=== PATIENT | female | born 1975 | race Caucasian/White ===

== ENCOUNTER 2023-03-28 17:20 | Emergency (ER) | payer MEDICAID, SELFPAY ==
[2023-03-28 17:23] VITALS: BP 140/98; PULSE 94; RESP 18; TEMP 37.4; O2SAT 99; BMI 28.5
--- NOTE | 2023-03-28 17:37 | ED.GENADUL1 ---
Documented by User: BATSHEVA Kumar 03/28/23 19:21 HPI - General Adult General Chief complaint: Skin/Abscess/Foreign Body Stated complaint: infection thumb, rash Time Seen by Provider: 03/28/23 17:23 History of Present Illness HPI narrative: patient is a 47-year-old female who presents to the emergency department for the evaluation of left thumb swelling over the last two days. She states the initial swelling was on the dorsum and radial aspect of the fingertip, she has now had diffuse swelling, redness and pain of the fingertip. There has been no drainage. She denies any injuries, she has no history of diabetes or similar symptoms previously. She further complains of rash to the right forearm that was noted just prior to arrival by her significant other without itching or pain. She further complains of pain and swelling to the 1st MTP joint. She denies any injury to the foot. She is not concerned for . she reports subjective fever, no vomiting. Related Data Home Medications Medication Instructions Recorded Confirmed aripiprazole 2 mg tablet 2 mg PO 03/28/23 metoprolol succinate 25 mg 25 mg PO 03/28/23 tablet,extended release 24 hr Previous Rx's Medication Instructions Recorded cephalexin 500 mg capsule 500 mg PO Q8H 10 days #30 caps 03/28/23 mupirocin 2 % topical ointment 1 applic topical BID #15 grams 03/28/23 naproxen sodium 550 mg tablet 550 mg PO BID PRN pain #10 tabs 03/28/23 ondansetron 4 mg disintegrating 4 mg PO Q6H PRN nausea and 03/28/23 tablet vomiting #12 tabs oxycodone-acetaminophen 5 mg-325 1 tab PO Q6H PRN pain #15 tabs 03/28/23 mg tablet (Percocet) sulfamethoxazole 800 1 tab PO BID 10 days #20 tabs 03/28/23 mg-trimethoprim 160 mg tablet (Bactrim DS) Allergies Allergy/AdvReac Type Severity Reaction Status Date / Time No Known Drug Allergies Allergy Verified 03/28/23 17:23 Review of Systems ROS Constitutional Reports: fever; Denies: chills Respiratory Denies: shortness of breath Gastrointestinal Denies: nausea or vomiting Musculoskeletal Reports: extremity pain and joint pain Integumentary/Breast Denies: rash Allergic/Immunologic Denies: hives PFSH PFSH Social History Smoking status: Current some day smoker Exam Narrative Exam Narrative: Gen.: Awake, alert, in no distress Head: Normocephalic, atraumatic ENT: Moist mucous membranes Respiratory: No respiratory distress Extremities: Moves extremities equally, left thumb with diffuse erythema, deep this erythema is concentrated on the dorsal, radial aspect of the right thumb at the distal phalanx. Diffusely tender to palpation with limited flexion and extension at the IP joint due to pain, no palpable abscess in the soft tissue of the fingertip. No visible paronychia, no active drainage. No red streaking; 1st MTP joint of the left foot with no erythema or rash noted. Diffusely swollen, 2+ left DP pulse Psych: Normal mood and affect Neuro: No focal neuro deficit Skin: Warm, dry, intact; folliculitis noted to the dorsum minimally of the midforearm, no open wounds or drainage. No abscess or red streaking Constitutional Vital Signs, click to edit/add: Last Vital Signs Temp 99.3 F 03/28/23 17:23 Pulse 94 H 03/28/23 17:23 Resp 18 03/28/23 17:23 BP 140/98 H 03/28/23 17:23 Pulse Ox 99 03/28/23 17:23 O2 Del Method Room Air 03/28/23 17:23 Course Vital Signs Vital signs: Vital Signs Temperature 99.3 F 03/28/23 17:23 Pulse Rate 94 H 03/28/23 17:23 Respiratory Rate 18 03/28/23 17:23 Blood Pressure 140/98 H 03/28/23 17:23 Pulse Oximetry 99 03/28/23 17:23 Oxygen Delivery Method Room Air 03/28/23 17:23 Temperature 99.3 F 03/28/23 17:23 Pulse Rate 94 H 03/28/23 17:23 Respiratory Rate 18 03/28/23 17:23 Blood Pressure 140/98 H 03/28/23 17:23 Pulse Oximetry 99 03/28/23 17:23 Oxygen Delivery Method Room Air 03/28/23 17:23 Medical Decision Making MDM Narrative Medical decision making narrative: exam is consistent with soft tissue cellulitis of the left thumb, there is no palpable abscess or fluctuance, no red streaking to the proximal thumb. No open wounds or drainage. X-rays of the left foot and left thumb with no evidence of osteomyelitis although there are degenerative changes at the 1st MTP joint. Lab studies show normal white blood cell count, no bandemia, normal uric acid with mild elevation of CRP. Patient treated with oral antibiotics for cellulitis, topical antibiotics for folliculitis of the right arm, analgesics and NSAIDs for pain. She is encouraged to do warm soaks for the thumb, follow-up with orthopedics to reevaluate the area as well as for her left foot, return to the Emergency Room if symptoms change or worsen. She is neurovascularly intact at discharge. Lab Data Labs: Lab Results 03/28/23 Range/Units 17:45 WBC 10.3 (4.0-11.0) 10^3/uL RBC 4.54 (4.20-5.40) 10^6/uL Hgb 13.6 (12.0-16.0) g/dL Hct 41.0 (36.0-48.0) % MCV 90.3 (81.0-99.0) fL MCH 30.0 (26.7-34.0) pg MCHC 33.2 (29.9-35.2) g/dL RDW 12.9 (11.0-15.0) % Plt Count 249 (150-450) 10^3/uL MPV 10.3 (9.5-13.5) fL Neut % (Auto) 82.0 H (43.0-75.0) % Lymph % (Auto) 12.4 L (20.5-60.0) % Warren % (Auto) 4.2 (1.7-12.0) % Eos % (Auto) 0.7 L (0.9-7.0) % Baso % (Auto) 0.4 (0.2-2.0) % Neut # (Auto) 8.5 H (1.4-6.5) 10^3/uL Lymph # (Auto) 1.3 (1.2-3.8) 10^3/uL Warren # (Auto) 0.4 (0.3-0.8) 10^3/uL Eos # (Auto) 0.1 (0.0-0.7) 10^3/uL Baso # (Auto) 0.0 (0.0-0.1) 10^3/uL Abs Immat Gran (auto) 0.03 (0.00-0.03) 10^3/uL Imm/Tot Granulo (auto) 0.3 (0.0-0.5) % ESR 19 (<=20) mm/hr Sodium 137 (136-145) mmol/L Potassium 3.5 (3.5-5.1) mmol/L Chloride 103 (98-107) mmol/L Carbon Dioxide 31.7 (21.0-32.0) mmol/L Anion Gap 5.8 BUN 9.0 (7.0-18.0) mg/dL Creatinine 0.63 (0.55-1.02) mg/dL Est GFR ( Amer) >60 (>=60) Est GFR (Non-Af Amer) >60 (>=60) BUN/Creatinine Ratio 14.3 Glucose 96 (74-106) mg/dL Uric Acid 4.3 (2.6-6.0) mg/dL Calcium 9.2 (8.5-10.1) mg/dL Total Bilirubin 0.2 (0.2-1.0) mg/dL AST 15 (15-37) U/L ALT 27 (14-59) U/L Alkaline Phosphatase 97 (46-116) U/L C-Reactive Protein 5.4 H (<=1.0) mg/dL Total Protein 7.1 (6.4-8.2) g/dL Albumin 3.8 (3.4-5.0) g/dL Globulin 3.3 g/dL Albumin/Globulin Ratio 1.2 Imaging Data XR foot: Attestation: I have reviewed the pertinent imaging results. Discharge Plan Discharge Chief Complaint: Skin/Abscess/Foreign Body Clinical Impression: Acute pain of left foot, Folliculitis, Cellulitis of left thumb Patient Disposition: Home, Self-Care Time of Disposition Decision: 19:09 Condition: Good Prescriptions / Home Meds: New sulfamethoxazole-trimethoprim [Bactrim DS] 800-160 mg tablet 1 tab PO BID 10 Days Qty: 20 0RF oxycodone-acetaminophen [Percocet] 5-325 mg tablet 1 tab PO Q6H PRN (Reason: pain) Qty: 15 0RF Rx Instructions: DX: M79.645 cephalexin 500 mg capsule 500 mg PO Q8H 10 Days Qty: 30 0RF naproxen sodium 550 mg tablet 550 mg PO BID PRN (Reason: pain) Qty: 10 0RF mupirocin 2 % ointment 1 applic topical BID Qty: 15 0RF ondansetron 4 mg tablet,disintegrating 4 mg PO Q6H PRN (Reason: nausea and vomiting) Qty: 12 0RF No Action aripiprazole 2 mg tablet 2 mg PO metoprolol succinate 25 mg tablet extended release 24 hr 25 mg PO Instructions: Cellulitis (ED), Folliculitis (ED), Arthralgia (ED) Additional Instructions: Call [facility] office tomorrow to follow up with Jd or Dr. Mccray [phone] in the next 2-3 days Stand Alone Forms: Portal Instructions Referrals: Physician,Non-Staff, MD [Primary Care Provider] - 1 week Discharge Date/Time: 03/28/23 19:33 Documented by User: Jorgito Walton MD 03/28/23 19:46 HPI - General Adult General Chief complaint: Skin/Abscess/Foreign Body Stated complaint: infection thumb, rash Time Seen by Provider: 03/28/23 17:23 Related Data Home Medications Medication Instructions Recorded Confirmed aripiprazole 2 mg tablet 2 mg PO 03/28/23 metoprolol succinate 25 mg 25 mg PO 03/28/23 tablet,extended release 24 hr Previous Rx's Medication Instructions Recorded cephalexin 500 mg capsule 500 mg PO Q8H 10 days #30 caps 03/28/23 mupirocin 2 % topical ointment 1 applic topical BID #15 grams 03/28/23 naproxen sodium 550 mg tablet 550 mg PO BID PRN pain #10 tabs 03/28/23 ondansetron 4 mg disintegrating 4 mg PO Q6H PRN nausea and 03/28/23 tablet vomiting #12 tabs oxycodone-acetaminophen 5 mg-325 1 tab PO Q6H PRN pain #15 tabs 03/28/23 mg tablet (Percocet) sulfamethoxazole 800 1 tab PO BID 10 days #20 tabs 03/28/23 mg-trimethoprim 160 mg tablet (Bactrim DS) Allergies Allergy/AdvReac Type Severity Reaction Status Date / Time No Known Drug Allergies Allergy Verified 03/28/23 17:23 [facility] Social History Smoking status: Current some day smoker Exam Constitutional Vital Signs, click to edit/add: Last Vital Signs Temp 99.3 F 03/28/23 17:23 Pulse 94 H 03/28/23 17:23 Resp 18 03/28/23 17:23 BP 140/98 H 03/28/23 17:23 Pulse Ox 99 03/28/23 17:23 O2 Del Method Room Air 03/28/23 17:23 Course Vital Signs Vital signs: Vital Signs Temperature 99.3 F 03/28/23 17:23 Pulse Rate 94 H 03/28/23 17:23 Respiratory Rate 18 03/28/23 17:23 Blood Pressure 140/98 H 03/28/23 17:23 Pulse Oximetry 99 03/28/23 17:23 Oxygen Delivery Method Room Air 03/28/23 17:23 Temperature 99.3 F 03/28/23 17:23 Pulse Rate 94 H 03/28/23 17:23 Respiratory Rate 18 03/28/23 17:23 Blood Pressure 140/98 H 03/28/23 17:23 Pulse Oximetry 99 03/28/23 17:23 Oxygen Delivery Method Room Air 03/28/23 17:23 Medical Decision Making [facility] Narrative Medical decision making narrative: exam is consistent with soft tissue cellulitis of the left thumb, there is no palpable abscess or fluctuance, no red streaking to the proximal thumb. No open wounds or drainage. X-rays of the left foot and left thumb with no evidence of osteomyelitis although there are degenerative changes at the 1st MTP joint. Lab studies show normal white blood cell count, no bandemia, normal uric acid with mild elevation of CRP. Patient treated with oral antibiotics for cellulitis, topical antibiotics for folliculitis of the right arm, analgesics and NSAIDs for pain. She is encouraged to do warm soaks for the thumb, follow-up with orthopedics to reevaluate the area as well as for her left foot, return to the Emergency Room if symptoms change or worsen. She is neurovascularly intact at discharge. I, Dr Walton, have reviewed the above progress note and course of action in the ER; agree with the above. I have personally seen and evaluated this patient, gone over history and physical, and discussed disposition and treatment plan with the patient. Lab Data Labs: Lab Results 03/28/23 Range/Units 17:45 WBC 10.3 (4.0-11.0) 10^3/uL RBC 4.54 (4.20-5.40) 10^6/uL Hgb 13.6 (12.0-16.0) g/dL Hct 41.0 (36.0-48.0) % MCV 90.3 (81.0-99.0) fL MCH 30.0 (26.7-34.0) pg MCHC 33.2 (29.9-35.2) g/dL RDW 12.9 (11.0-15.0) % Plt Count 249 (150-450) 10^3/uL MPV 10.3 (9.5-13.5) fL Neut % (Auto) 82.0 H (43.0-75.0) % Lymph % (Auto) 12.4 L (20.5-60.0) % Warren % (Auto) 4.2 (1.7-12.0) % Eos % (Auto) 0.7 L (0.9-7.0) % Baso % (Auto) 0.4 (0.2-2.0) % Neut # (Auto) 8.5 H (1.4-6.5) 10^3/uL Lymph # (Auto) 1.3 (1.2-3.8) 10^3/uL Warren # (Auto) 0.4 (0.3-0.8) 10^3/uL Eos # (Auto) 0.1 (0.0-0.7) 10^3/uL Baso # (Auto) 0.0 (0.0-0.1) 10^3/uL Abs Immat Gran (auto) 0.03 (0.00-0.03) 10^3/uL Imm/Tot Granulo (auto) 0.3 (0.0-0.5) % ESR 19 (<=20) mm/hr Sodium 137 (136-145) mmol/L Potassium 3.5 (3.5-5.1) mmol/L Chloride 103 (98-107) mmol/L Carbon Dioxide 31.7 (21.0-32.0) mmol/L Anion Gap 5.8 BUN 9.0 (7.0-18.0) mg/dL Creatinine 0.63 (0.55-1.02) mg/dL Est GFR ( Amer) >60 (>=60) Est GFR (Non-Af Amer) >60 (>=60) BUN/Creatinine Ratio 14.3 Glucose 96 (74-106) mg/dL Uric Acid 4.3 (2.6-6.0) mg/dL Calcium 9.2 (8.5-10.1) mg/dL Total Bilirubin 0.2 (0.2-1.0) mg/dL AST 15 (15-37) U/L ALT 27 (14-59) U/L Alkaline Phosphatase 97 (46-116) U/L C-Reactive Protein 5.4 H (<=1.0) mg/dL Total Protein 7.1 (6.4-8.2) g/dL Albumin 3.8 (3.4-5.0) g/dL Globulin 3.3 g/dL Albumin/Globulin Ratio 1.2 Discharge Plan Discharge Chief Complaint: Skin/Abscess/Foreign Body Clinical Impression: Acute pain of left foot, Folliculitis, Cellulitis of left thumb Patient Disposition: Home, Self-Care Time of Disposition Decision: 19:09 Condition: Good Prescriptions / Home Meds: New sulfamethoxazole-trimethoprim [Bactrim DS] 800-160 mg tablet 1 tab PO BID 10 Days Qty: 20 0RF oxycodone-acetaminophen [Percocet] 5-325 mg tablet 1 tab PO Q6H PRN (Reason: pain) Qty: 15 0RF Rx Instructions: DX: M79.645 cephalexin 500 mg capsule 500 mg PO Q8H 10 Days Qty: 30 0RF naproxen sodium 550 mg tablet 550 mg PO BID PRN (Reason: pain) Qty: 10 0RF mupirocin 2 % ointment 1 applic topical BID Qty: 15 0RF ondansetron 4 mg tablet,disintegrating 4 mg PO Q6H PRN (Reason: nausea and vomiting) Qty: 12 0RF No Action aripiprazole 2 mg tablet 2 mg PO metoprolol succinate 25 mg tablet extended release 24 hr 25 mg PO Instructions: Cellulitis (ED), Folliculitis (ED), Arthralgia (ED) Additional Instructions: Call [facility] office tomorrow to follow up with Jd or Dr. Mccray [phone] in the next 2-3 days Stand Alone Forms: Portal Instructions Referrals: Physician,Non-Staff, MD [Primary Care Provider] - 1 week Discharge Date/Time: 03/28/23 19:33
--- NOTE | 2023-03-28 17:40 | XR_ITS ---
The [address] [address] Patient Name: JENNY MENCHACA MRN: [id number] date: 1975 Sex: F Assigned Patient Location: ER Current Patient Location: ER Accession/Order Number: [id number] Exam Date: 03/28/2023 18:00 Report Date: 03/28/2023 19:05 At the request of: HAROON DRIVER Procedure: XR foot LT min 3V IMAGES REVIEWED: XR foot LT min 3V COMPARISON: None available. CLINICAL INDICATION: 1st MTP joint swelling/pain FINDINGS/IMPRESSION: 1. 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 2. Mild dorsal forefoot soft tissue swelling. 3. No fracture or dislocation. Electronically authenticated by: VALERIA GONZALEZ Date: 03/28/2023 19:05
[2023-03-28 17:49] LABS: Basophils Percent Auto 0.4 % (0.2-2.0); Eosinophils Absolute Auto 0.1 10^3/uL (0.0-0.7); Eosinophils Percent Auto 0.7 % (0.9-7.0); Hemoglobin 13.6 g/dL (12.0-16.0); Immature Granulocytes Abs Auto 0.03 10^3/uL (0.00-0.03); Immature Granulocytes Pct Auto 0.3 % (0.0-0.5); Lymphocytes Absolute Auto 1.3 10^3/uL (1.2-3.8); Lymphocytes Percent Auto 12.4 % (20.5-60.0); Mean Corpuscular HGB Conc 33.2 g/dL (29.9-35.2); Mean Corpuscular Volume 90.3 fL (81.0-99.0); Mean Platelet Volume 10.3 fL (9.5-13.5); Monocytes Absolute Auto 0.4 10^3/uL (0.3-0.8); Monocytes Percent Auto 4.2 % (1.7-12.0); Neutrophils Absolute Auto 8.5 10^3/uL (1.4-6.5); Platelet Count 249 10^3/uL (150-450); Red Blood Count 4.54 10^6/uL (4.20-5.40); Red Cell Distribution Width 12.9 % (11.0-15.0); White Blood Count 10.3 10^3/uL (4.0-11.0)
[2023-03-28 17:55] LABS: Erythrocyte Sedimentation Rate 19 mm/hr (<=20)
--- NOTE | 2023-03-28 18:00 | XR_ITS ---
The [address] [address] Patient Name: JENNY MENCHACA MRN: [id number] date: 1975 Sex: F Assigned Patient Location: ER Current Patient Location: ER Accession/Order Number: [id number] Exam Date: 03/28/2023 18:00 Report Date: 03/28/2023 18:56 At the request of: HAROON DRIVER Procedure: XR finger LT min 2V EXAM: Left thumb HISTORY: . osteomyelitis . COMPARISON: None. TECHNIQUE: 3 views FINDINGS: No bony or joint abnormality of the left thumb is noted. No fracture or bony destructive process is noted. No periosteal reaction is noted. Surrounding soft tissues are unremarkable. XR/XR finger LT min 2V IMPRESSION: 1. No acute bony abnormality of left thumb. There is no radiographic evidence of osteomyelitis. 2. No radiopaque foreign body within the soft tissues. Electronically authenticated by: NATACHA KRISHNA Date: 03/28/2023 18:56
[2023-03-28 18:01] LABS: C Reactive Protein 5.4 mg/dL (<=1.0)
[2023-03-28 18:02] LABS: Uric Acid 4.3 mg/dL (2.6-6.0)
[2023-03-28 18:06] LABS: Alanine Aminotransferase 27 U/L (14-59); Albumin Globulin Ratio 1.2; Albumin Level 3.8 g/dL (3.4-5.0); Alkaline Phosphatase 97 U/L (46-116); Anion Gap 5.8; Aspartate Amino Transferase 15 U/L (15-37); BUN Creatinine Ratio 14.3; Bilirubin Total 0.2 mg/dL (0.2-1.0); Calcium 9.2 mg/dL (8.5-10.1); Carbon Dioxide 31.7 mmol/L (21.0-32.0); Chloride 103 mmol/L (98-107); Estimated GFR (African America >60 (>=60); Estimated GFR (Non-African Ame >60 (>=60); Globulin 3.3 g/dL; Glucose 96 mg/dL (74-106); Potassium 3.5 mmol/L (3.5-5.1); Sodium 137 mmol/L (136-145); Total Protein 7.1 g/dL (6.4-8.2)
== END 2023-03-28 19:33 | disposition home or self-care (01) ==
PROVIDERS: Physician Assistant; Emergency Provider Emergency Medicine
DX: M79.672 Pain in left foot (principal); L03.012 Cellulitis of left finger; L73.9 Follicular disorder, unspecified; Z79.899 Other long term (current) drug therapy; F17.210 Nicotine dependence, cigarettes, uncomplicated
CPT/HCPCS: 36415; 73140; 73630; 80053; 84550; 85025; 85652; 86140; 99284

== ENCOUNTER 2023-08-23 17:20 | Emergency (ER) | payer MEDICAID, SELFPAY ==
[2023-08-23 17:24] VITALS: BP 164/100; PULSE 60; RESP 20; TEMP 36.8; O2SAT 98; BMI 23.4
--- NOTE | 2023-08-23 17:28 | ECG_ITS ---
The 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
--- NOTE | 2023-08-23 17:34 | ED.CHESTPAI1 ---
HPI - Chest Pain General Chief Complaint: Chest Pain Stated Complaint: Chest Pain, Palpitations Time Seen by Provider: 08/23/23 17:21 Source: patient Mode of arrival: walk-in Limitations: no limitations History of Present Illness HPI narrative: Patient is a 48-year-old female who presents to the emergency department for the evaluation of chest discomfort and palpitations over the last week. She has a history of A-fib last year, she is not currently in A-fib. She states she has only minimal discomfort in the chest at this time. She states today she felt very sweaty and clammy this morning which prompted her to come to the ER. 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 She has not had any objective fevers, vomiting, diarrhea. She has no shortness of breath or significant cough. No peripheral edema. No concern for . She takes carvedilol for blood pressure and clonidine as needed. She denies tobacco abuse. Risk Factors Coronary artery disease risk factors: hypertension Related Data Home Medications Medication Instructions Recorded Confirmed aripiprazole 2 mg tablet 2 mg PO 03/28/23 metoprolol succinate 25 mg 25 mg PO 03/28/23 tablet,extended release 24 hr Previous Rx's Medication Instructions Recorded cephalexin 500 mg capsule 500 mg PO Q8H 10 days #30 caps 03/28/23 mupirocin 2 % topical ointment 1 applic topical BID #15 grams 03/28/23 naproxen sodium 550 mg tablet 550 mg PO BID PRN pain #10 tabs 03/28/23 ondansetron 4 mg disintegrating 4 mg PO Q6H PRN nausea and 03/28/23 tablet vomiting #12 tabs oxycodone-acetaminophen 5 mg-325 1 tab PO Q6H PRN pain #15 tabs 03/28/23 mg tablet (Percocet) sulfamethoxazole 800 1 tab PO BID 10 days #20 tabs 03/28/23 mg-trimethoprim 160 mg tablet (Bactrim DS) Allergies Allergy/AdvReac Type Severity Reaction Status Date / Time No Known Drug Allergies Allergy Verified 03/28/23 17:23 Review of Systems ROS Constitutional Denies: fever or chills Ears, nose, mouth, and throat Denies: throat pain or nasal congestion Cardiovascular Reports: chest pain and palpitations Respiratory Reports: cough; Denies: shortness of breath Gastrointestinal Denies: nausea, vomiting or diarrhea Musculoskeletal Denies: back pain Integumentary/Breast Denies: rash Neurological Denies: headache PFSH PFSH Social History Smoking status: Former smoker Exam Narrative Exam Narrative: Gen.: Awake, alert, in no distress Head: Normocephalic, atraumatic ENT: Moist mucous membranes Respiratory: No respiratory distress, lungs clear bilaterally Cardio: Regular rate and rhythm Gastrointestinal: Abdomen is soft, nondistended and nontender to palpation Extremities: Moves extremities equally, no pedal edema Psych: Normal mood and affect Neuro: No focal neuro deficit Skin: Warm, dry, intact Constitutional Vital Signs, click to edit/add: Last Vital Signs Temp 98.3 F 08/23/23 17:24 Pulse 60 08/23/23 17:24 Resp 20 08/23/23 17:24 BP 164/100 H 08/23/23 17:24 Pulse Ox 98 08/23/23 17:24 Course Vital Signs Vital signs: Vital Signs Temperature 98.3 F 08/23/23 17:24 Pulse Rate 60 08/23/23 17:24 Respiratory Rate 20 08/23/23 17:24 Blood Pressure 164/100 H 08/23/23 17:24 Pulse Oximetry 98 08/23/23 17:24 Temperature 98.3 F 08/23/23 17:24 Pulse Rate 60 08/23/23 17:24 Respiratory Rate 20 08/23/23 17:24 Blood Pressure 164/100 H 08/23/23 17:24 Pulse Oximetry 98 08/23/23 17:24 MDM - Chest Pain MDM Narrative Medical decision making narrative: Lab studies including cardiac enzymes, D-dimer, TSH are within normal limits. Patient with normal cardiac monitoring, normal EKG. Heart score is a 2. She is discharged home to follow-up with her biodiesel operations manager. Given fluids in the ER. Return to the ER if symptoms change or worsen Medical Records Data Attestation: I reviewed the patient's medical records. Lab Data Attestation: I reviewed the patient's lab results. Labs: Lab Results 08/23/23 Range/Units 17:30 WBC 11.2 H (4.0-11.0) 10^3/uL RBC 4.26 (4.20-5.40) 10^6/uL Hgb 13.2 (12.0-16.0) g/dL Hct 38.8 (36.0-48.0) % MCV 91.1 (81.0-99.0) fL MCH 31.0 (26.7-34.0) pg MCHC 34.0 (29.9-35.2) g/dL RDW 12.5 (11.0-15.0) % Plt Count 266 (150-450) 10^3/uL MPV 10.4 (9.5-13.5) fL Neut % (Auto) 72.1 (43.0-75.0) % Lymph % (Auto) 20.9 (20.5-60.0) % Morrow % (Auto) 5.2 (1.7-12.0) % Eos % (Auto) 0.9 (0.9-7.0) % Baso % (Auto) 0.6 (0.2-2.0) % Neut # (Auto) 8.1 H (1.4-6.5) 10^3/uL Lymph # (Auto) 2.4 (1.2-3.8) 10^3/uL Morrow # (Auto) 0.6 (0.3-0.8) 10^3/uL Eos # (Auto) 0.1 (0.0-0.7) 10^3/uL Baso # (Auto) 0.1 (0.0-0.1) 10^3/uL Abs Immat Gran (auto) 0.03 (0.00-0.03) 10^3/uL Imm/Tot Granulo (auto) 0.3 (0.0-0.5) % PT 10.2 (9.0-11.6) sec INR 0.96 D-Dimer <0.19 (<=0.59) mg/L FEU Sodium 141 (136-145) mmol/L Potassium 4.1 (3.5-5.1) mmol/L Chloride 105 (98-107) mmol/L Carbon Dioxide 28.3 (21.0-32.0) mmol/L Anion Gap 11.8 BUN 18.0 (7.0-18.0) mg/dL Creatinine 0.57 (0.55-1.02) mg/dL Est GFR ( Amer) >60 (>=60) Est GFR (Non-Af Amer) >60 (>=60) BUN/Creatinine Ratio 31.6 Glucose 93 (74-106) mg/dL Calcium 9.2 (8.5-10.1) mg/dL Magnesium 1.7 L (1.8-2.4) mg/dL Total Bilirubin 0.3 (0.2-1.0) mg/dL AST 11 L (15-37) U/L ALT 19 (14-59) U/L Alkaline Phosphatase 86 (46-116) U/L Troponin I High Sens 5.0 (4.0-51.3) pg/mL NT-Pro-B Natriuret Pep 88.0 (<=450.0) pg/mL Total Protein 7.1 (6.4-8.2) g/dL Albumin 3.9 (3.4-5.0) g/dL Globulin 3.2 g/dL Albumin/Globulin Ratio 1.2 TSH 1.667 (0.358-3.740) uIU/mL Serum HCG, Qual Negative (NEGATIVE) Imaging Data Chest x-ray: Attestation: I have reviewed the pertinent imaging results. ECG Data Attestation: I personally reviewed and interpreted this ECG as follows: (Normal sinus rhythm at a rate of 65, no acute ST elevation or ectopy. EKG reviewed by attending physician) Heart Score History: Slightly/Non-Suspicious ECG: Normal Age: >45-<65 years Risk Factors: 1 or 2 Risk Factors Troponin: <Normal Limit Total Heart Score Recommendations & Risks:: 2 Discharge Plan Discharge Chief Complaint: Chest Pain Clinical Impression: Palpitations, Chest pain Patient Disposition: Home, Self-Care Time of Disposition Decision: 18:23 Condition: Good Prescriptions / Home Meds: No Action aripiprazole 2 mg tablet 2 mg PO metoprolol succinate 25 mg tablet extended release 24 hr 25 mg PO sulfamethoxazole-trimethoprim [Bactrim DS] 800-160 mg tablet 1 tab PO BID 10 Days Qty: 20 0RF oxycodone-acetaminophen [Percocet] 5-325 mg tablet 1 tab PO Q6H PRN (Reason: pain) Qty: 15 0RF Rx Instructions: DX: M79.645 cephalexin 500 mg capsule 500 mg PO Q8H 10 Days Qty: 30 0RF naproxen sodium 550 mg tablet 550 mg PO BID PRN (Reason: pain) Qty: 10 0RF mupirocin 2 % ointment 1 applic topical BID Qty: 15 0RF ondansetron 4 mg tablet,disintegrating 4 mg PO Q6H PRN (Reason: nausea and vomiting) Qty: 12 0RF Instructions: Chest Pain (ED), Heart Palpitations (ED) Additional Instructions: Follow up with your biodiesel operations manager Stand Alone Forms: Portal Instructions Referrals: Physician,Non-Staff, MD [Primary Care Provider] - 1 week
[2023-08-23 17:42] LABS: Basophils Absolute Auto 0.1 10^3/uL (0.0-0.1); Basophils Percent Auto 0.6 % (0.2-2.0); Eosinophils Absolute Auto 0.1 10^3/uL (0.0-0.7); Eosinophils Percent Auto 0.9 % (0.9-7.0); Hematocrit 38.8 % (36.0-48.0); Hemoglobin 13.2 g/dL (12.0-16.0); Immature Granulocytes Abs Auto 0.03 10^3/uL (0.00-0.03); Immature Granulocytes Pct Auto 0.3 % (0.0-0.5); Lymphocytes Absolute Auto 2.4 10^3/uL (1.2-3.8); Lymphocytes Percent Auto 20.9 % (20.5-60.0); Mean Corpuscular Volume 91.1 fL (81.0-99.0); Mean Platelet Volume 10.4 fL (9.5-13.5); Monocytes Absolute Auto 0.6 10^3/uL (0.3-0.8); Monocytes Percent Auto 5.2 % (1.7-12.0); Neutrophils Absolute Auto 8.1 10^3/uL (1.4-6.5); Neutrophils Percent Auto 72.1 % (43.0-75.0); Platelet Count 266 10^3/uL (150-450); Red Blood Count 4.26 10^6/uL (4.20-5.40); Red Cell Distribution Width 12.5 % (11.0-15.0); White Blood Count 11.2 10^3/uL (4.0-11.0)
[2023-08-23] MEDS: 0.9 % SODIUM CHLORIDE 1,000 ML 1000 ML IV (17:56)
[2023-08-23 17:57] LABS: INR 0.96; Prothrombin Time 10.2 sec (9.0-11.6)
[2023-08-23 17:59] LABS: D Dimer <0.19 mg/L FEU (<=0.59)
[2023-08-23 18:00] LABS: HCG Qualitative NEGATIVE (NEGATIVE)
--- NOTE | 2023-08-23 18:00 | XR_ITS ---
The [address] [address] Patient Name: JENNY MENCHACA MRN: [id number] date: 1975 Sex: F Assigned Patient Location: ER Current Patient Location: Accession/Order Number: [id number] Exam Date: 08/23/2023 18:05 Report Date: 08/23/2023 19:08 At the request of: HAROON DRIVER Procedure: XR chest 1V CXR HISTORY: Palpitations COMPARISON: None. TECHNIQUE: 1 view chest submitted for review. FINDINGS: The lungs are adequately expanded without evidence of acute infiltrate or effusion. The cardiac silhouette measures within normal. Pulmonary vascularity is unremarkable. Osseous structures do not demonstrate any acute abnormality. XR/XR chest 1V IMPRESSION: No plain film evidence for acute cardiopulmonary disease. Electronically authenticated by: NICOLE LANDEROS Date: 08/23/2023 19:08
[2023-08-23 18:01] LABS: Alanine Aminotransferase 19 U/L (14-59); Albumin Globulin Ratio 1.2; Albumin Level 3.9 g/dL (3.4-5.0); Alkaline Phosphatase 86 U/L (46-116); Anion Gap 11.8; Aspartate Amino Transferase 11 U/L (15-37); BUN Creatinine Ratio 31.6; Bilirubin Total 0.3 mg/dL (0.2-1.0); Calcium 9.2 mg/dL (8.5-10.1); Carbon Dioxide 28.3 mmol/L (21.0-32.0); Chloride 105 mmol/L (98-107); Estimated GFR (African America >60 (>=60); Estimated GFR (Non-African Ame >60 (>=60); Globulin 3.2 g/dL; Glucose 93 mg/dL (74-106); Potassium 4.1 mmol/L (3.5-5.1); Sodium 141 mmol/L (136-145); Total Protein 7.1 g/dL (6.4-8.2)
[2023-08-23 18:10] LABS: Magnesium 1.7 mg/dL (1.8-2.4); Thyroid Stimulating Hormone 1.667 uIU/mL (0.358-3.740)
== END 2023-08-23 18:51 | disposition home or self-care (01) ==
PROVIDERS: Physician Assistant; Emergency Provider Emergency Medicine
DX: R07.9 Chest pain, unspecified (principal); R00.2 Palpitations; Z79.899 Other long term (current) drug therapy; I10 Essential (primary) hypertension; Z87.891 Personal history of nicotine dependence
CPT/HCPCS: 36415; 71045; 80053; 83735; 83880; 84443; 84484; 84703; 85025; 85378; 85610; 93005; 99285

== ENCOUNTER 2024-01-08 22:22 | Emergency (ER) | payer MEDICAID, SELFPAY ==
[2024-01-08 22:30] VITALS: BP 159/110; PULSE 89; TEMP 36.6; BMI 25.0
--- NOTE | 2024-01-08 22:43 | PC.NURSE ---
Rash noted red small raised to posterior neck and left AC.
--- NOTE | 2024-01-08 23:11 | ED_ITS ---
HPI - Skin/Abscess/Foreign Bdy General Chief complaint: Skin/Abscess/Foreign Body Stated complaint: SKIN PROBLEMS Time Seen by Provider: 01/08/24 23:11 Source: patient Mode of arrival: walk-in Limitations: no limitations History of Present Illness HPI narrative: presents complaining of a rash for past month. Has been to urgent care and treated with steroids and keflex without improvement. Tonight at work felt light headed and nauseated and came in. burning pain of the rash. No fever Related Data Home Medications ?Medication ?Instructions ?Recorded ?Confirmed aripiprazole 2 mg tablet 2 mg PO 03/28/23 metoprolol succinate 25 mg 25 mg PO 03/28/23 tablet,extended release 24 hr cariprazine 3 mg capsule (Vraylar) 3 mg PO DAILY 01/08/24 01/08/24 carvedilol 6.25 mg tablet 6.25 mg PO Q12H 01/08/24 01/08/24 cholecalciferol (vitamin D3) 1,250 1,250 mcg PO .WEEKLY 01/08/24 01/08/24 mcg (50,000 unit) capsule lorazepam 1 mg tablet 1 mg PO Q12H 01/08/24 01/08/24 lumateperone 10.5 mg capsule 10.5 mg PO DAILY 01/08/24 01/08/24 (Caplyta) methylphenidate HCl 18 mg 18 mg PO DAILY 01/08/24 01/08/24 tablet,extended release 24 hr (Concerta) propranolol 10 mg tablet 10 mg PO Q12H 01/08/24 01/08/24 Previous Rx's ?Medication ?Instructions ?Recorded cephalexin 500 mg capsule 500 mg PO Q8H 10 days #30 caps 03/28/23 mupirocin 2 % topical ointment 1 applic topical BID #15 grams 03/28/23 naproxen sodium 550 mg tablet 550 mg PO BID PRN pain #10 tabs 03/28/23 ondansetron 4 mg disintegrating 4 mg PO Q6H PRN nausea and 03/28/23 tablet vomiting #12 tabs oxycodone-acetaminophen 5 mg-325 1 tab PO Q6H PRN pain #15 tabs 03/28/23 mg tablet (Percocet) sulfamethoxazole 800 1 tab PO BID 10 days #20 tabs 09/11/23 mg-trimethoprim 160 mg tablet (Bactrim DS) Allergies Allergy/AdvReac Type Severity Reaction Status Date / Time No Known Drug Allergies Allergy Verified 01/08/24 22:34 Review of Systems ROS Status of ROS 10 or more systems reviewed and unremark able except as noted in history and below [facility] Medical History (Updated 01/09/24 @ 00:18 by Pacheco Goldberg MD) Appendicitis, acute ?K35.80 - Unspecified acute appendicitis (ICD-10) FH: cholecystectomy ?Z83.79 - Family history of other diseases of the digestive system (ICD-10) 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 - Asymptomatic postprocedural ovarian failure (ICD-10) ?Z90.710 - Acquired absence of both cervix and uterus (ICD-10) HTN (hypertension) ?I10 - Essential (primary) hypertension (ICD-10) Social History Smoking status: Former smoker Exam Constitutional Vital Signs, click to edit/add: Last Vital Signs Temp 97.9 F 01/08/24 22:30 Pulse 89 01/08/24 22:30 Resp 16 01/08/24 22:30 BP 159/110 H 01/08/24 22:30 Common normals: no apparent distress, average body habitus, oriented x3, no limitations, healthy appearing, alert and well nourished [facility] Common normals: normocephalic and head/scalp atraumatic Eye Common normals: PERRL, EOMs intact bilaterally and conjunctivae normal Chest Other: coarse patch dry patchy rash at base of neck and few isolated lesion on her extremities Respiratory Common normals: normal respiratory effort, no retractions, no use of accessory muscles and clear to auscultation bilaterally Cardio Common normals: regular rate, regular rhythm, S1 normal heart sound and S2 normal heart sound GI Common normals: Normal to inspection, nondistended, normoactive bowel sounds present, soft to palpation and non-tender Extremity Common normals: normal to inspection and full ROM Neuro Common normals: oriented x3, CN's II-XII intact bilaterally, moves all extremities and no focal motor deficits Psych Appearance: grossly normal Course Vital Signs Vital signs: Vital Signs Temperature 97.9 F 01/08/24 22:30 Pulse Rate 89 01/08/24 22:30 Respiratory Rate 16 06/23/24 22:30 Blood Pressure 159/110 H 01/08/24 22:30 Temperature 97.9 F 01/08/24 22:30 Pulse Rate 89 01/08/24 22:30 Respiratory Rate 16 01/08/24 22:30 Blood Pressure 159/110 H 01/08/24 22:30 MDM - Skin/Abscess/Foreign Bdy MDM Narrative Medical decision making narrative: presents with rash for past month. Has appearance of possible contact dermatitis rash. Was prescribed steroids and state they did not help and she did not like how she felt on them. She was also treated with Cephalexin without benefit. Basic labs tonight neg and she is afebrile. will have her apply topical steroid cream and prescribe doxycycline to cover atypicals Lab Data Labs: Lab Results 01/08/24 Range/Units 23:28 WBC 8.2 (4.0-11.0) 10^3/uL RBC 4.25 (4.20-5.40) 10^6/uL Hgb 13.1 (12.0-16.0) g/dL Hct 38.0 (36.0-48.0) % MCV 89.4 (81.0-99.0) fL MCH 30.8 (26.7-34.0) pg MCHC 34.5 (29.9-35.2) g/dL RDW 12.5 (11.0-15.0) % Plt Count 227 (150-450) 10^3/uL MPV 10.4 (9.5-13.5) fL Neut % (Auto) 71.3 (43.0-75.0) % Lymph % (Auto) 22.3 (20.5-60.0) % Kinney % (Auto) 4.5 (1.7-12.0) % Eos % (Auto) 1.1 (0.9-7.0) % Baso % (Auto) 0.6 (0.2-2.0) % Neut # (Auto) 5.9 (1.4-6.5) 10^3/uL Lymph # (Auto) 1.8 (1.2-3.8) 10^3/uL Kinney # (Auto) 0.4 (0.3-0.8) 10^3/uL Eos # (Auto) 0.1 (0.0-0.7) 10^3/uL Baso # (Auto) 0.1 (0.0-0.1) 10^3/uL Abs Immat Gran (auto) 0.02 (0.00-0.03) 10^3/uL Imm/Tot Granulo (auto) 0.2 (0.0-0.5) % Sodium 141 (136-145) mmol/L Potassium 4.0 (3.5-5.1) mmol/L Chloride 105 (98-107) mmol/L Carbon Dioxide 29.5 (21.0-32.0) mmol/L Anion Gap 10.5 BUN 14.0 (7.0-18.0) mg/dL Creatinine 0.60 (0.55-1.02) mg/dL Est GFR ( Amer) >60 (>=60) Est GFR (Non-Af Amer) >60 (>=60) BUN/Creatinine Ratio 23.3 Glucose 106 (74-106) mg/dL Calcium 9.0 (8.5-10.1) mg/dL Total Bilirubin 0.3 (0.2-1.0) mg/dL AST 11 L (15-37) U/L ALT 21 (14-59) U/L Alkaline Phosphatase 79 (46-116) U/L C-Reactive Protein <0.50 (<=0.50) mg/dL Total Protein 6.6 (6.4-8.2) g/dL Albumin 3.9 (3.4-5.0) g/dL Globulin 2.7 g/dL Albumin/Globulin Ratio 1.4 Discharge Plan Discharge Stand Alone Forms: Portal Instructions Chief Complaint: Skin/Abscess/Foreign Body Clinical Impression: Rash Patient Disposition: Home, Self-Care Prescriptions / Home Meds: No Action aripiprazole 2 mg tablet 2 mg PO metoprolol succinate 25 mg tablet extended release 24 hr 25 mg PO sulfamethoxazole-trimethoprim [Bactrim DS] 800-160 mg tablet 1 tab PO BID 10 Days Qty: 20 0RF oxycodone-acetaminophen [Percocet] 5-325 mg tablet 1 tab PO Q6H PRN (Reason: pain) Qty: 15 0RF Rx Instructions: DX: M79.645 cephalexin 500 mg capsule 500 mg PO Q8H 10 Days Qty: 30 0RF naproxen sodium 550 mg tablet 550 mg PO BID PRN (Reason: pain) Qty: 10 0RF mupirocin 2 % ointment 1 applic topical BID Qty: 15 0RF ondansetron 4 mg tablet,disintegrating 4 mg PO Q6H PRN (Reason: nausea and vomiting) Qty: 12 0RF Vraylar 3 mg capsule 3 mg PO DAILY carvedilol 6.25 mg tablet 6.25 mg PO Q12H cholecalciferol (vitamin D3) 1,250 mcg (50,000 unit) capsule 1,250 mcg PO .WEEKLY lorazepam 1 mg tablet 1 mg PO Q12H Caplyta 10.5 mg capsule 10.5 mg PO DAILY propranolol 10 mg tablet 10 mg PO Q12H methylphenidate HCl [Concerta] 18 mg tablet extended release 24hr 18 mg PO DAILY Print Language: Sinhala Instructions: Acute Rash (ED) Additional Instructions: follow up with your doctor this week for recheck Referrals: Physician,Non-Staff, MD [Primary Care Provider] - 1 week
[2024-01-08] MEDS: ONDANSETRON 4 MG RAPDIS TABLET SL (23:15)
[2024-01-08 23:38] LABS: Basophils Absolute Auto 0.1 10^3/uL (0.0-0.1); Basophils Percent Auto 0.6 % (0.2-2.0); Eosinophils Absolute Auto 0.1 10^3/uL (0.0-0.7); Eosinophils Percent Auto 1.1 % (0.9-7.0); Hemoglobin 13.1 g/dL (12.0-16.0); Immature Granulocytes Abs Auto 0.02 10^3/uL (0.00-0.03); Immature Granulocytes Pct Auto 0.2 % (0.0-0.5); Lymphocytes Absolute Auto 1.8 10^3/uL (1.2-3.8); Lymphocytes Percent Auto 22.3 % (20.5-60.0); Mean Corpuscular HGB Conc 34.5 g/dL (29.9-35.2); Mean Corpuscular Hemoglobin 30.8 pg (26.7-34.0); Mean Corpuscular Volume 89.4 fL (81.0-99.0); Mean Platelet Volume 10.4 fL (9.5-13.5); Monocytes Absolute Auto 0.4 10^3/uL (0.3-0.8); Monocytes Percent Auto 4.5 % (1.7-12.0); Neutrophils Absolute Auto 5.9 10^3/uL (1.4-6.5); Neutrophils Percent Auto 71.3 % (43.0-75.0); Platelet Count 227 10^3/uL (150-450); Red Blood Count 4.25 10^6/uL (4.20-5.40); Red Cell Distribution Width 12.5 % (11.0-15.0); White Blood Count 8.2 10^3/uL (4.0-11.0)
[2024-01-09 00:05] LABS: Alanine Aminotransferase 21 U/L (14-59); Albumin Globulin Ratio 1.4; Albumin Level 3.9 g/dL (3.4-5.0); Alkaline Phosphatase 79 U/L (46-116); Anion Gap 10.5; Aspartate Amino Transferase 11 U/L (15-37); BUN Creatinine Ratio 23.3; Bilirubin Total 0.3 mg/dL (0.2-1.0); Carbon Dioxide 29.5 mmol/L (21.0-32.0); Chloride 105 mmol/L (98-107); Estimated GFR (African America >60 (>=60); Estimated GFR (Non-African Ame >60 (>=60); Globulin 2.7 g/dL; Glucose 106 mg/dL (74-106); Sodium 141 mmol/L (136-145); Total Protein 6.6 g/dL (6.4-8.2)
[2024-01-09 00:06] LABS: C Reactive Protein <0.50 mg/dL (<=0.50)
[2024-01-09] MEDS: DOXYCYCLINE MONOHYDRATE 100 MG CAPSULE PO (00:29)
== END 2024-01-09 00:33 | disposition home or self-care (01) ==
PROVIDERS: Emergency Provider Internal Medicine
DX: R21 Rash and other nonspecific skin eruption (principal); Z87.891 Personal history of nicotine dependence
CPT/HCPCS: 36415; 80053; 85025; 86140; 99283; Q0162